=== PATIENT | male | born 1985 | race Caucasian/White ===

== ENCOUNTER 2020-06-18 11:16 | Emergency (ER) | payer OTHER ==
[~2020-06-18] VITALS: Ht 177.8 cm; Wt 75.2 kg
--- NOTE | 2020-06-18 11:27 | PHYS DOC ---
Past History Past Medical History: Other (X2 spontaneous pneumothorax to right side) Smoking: Quit Greater Than 1 Year Alcohol Use: None Drug Use: None Adult General Chief Complaint Chief Complaint: CHEST PAIN HPI HPI Patient is a 35-year-old male who presents for chest pain. 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 Patient reports he thought he pulled a muscle when he started driving approximately 1 hour later and started developing left-sided chest wall pain. Nothing known makes better, inhalation makes worse. Pain is dull constant and 7 out of 10 without any radiation. He has never felt pain like this before. He has history of spontaneous pneumothorax x2 on right side but this feels different. He has no other cardiac history. He has history of smoking tobacco but no other concerning risk factors, is never passed out with physical exertion, no significant family medical history of cardiac disease Review of Systems Review of Systems Fourteen body systems of review of systems have been reviewed. See HPI for pertinent positives and negative responses, other fortune all other systems are negative, non-pertinent or non-contributory Physical Exam Physical Exam Constitutional: Well developed, well nourished, no acute distress, non-toxic appearance. HENT: Normocephalic, atraumatic, bilateral external ears normal, oropharynx moist, no oral exudates, nose normal. Eyes: PERRLA, EOMI, conjunctiva normal, no discharge. Neck: Normal range of motion, no tenderness, supple, no stridor. Cardiovascular: Heart rate regular, sinus rhythm, no murmurs rubs or gallops Lungs & Thorax: Bilateral breath sounds clear to auscultation Abdomen: Bowel sounds normal, soft, no tenderness, no masses, no pulsatile masses. Nonsurgical abdomen, no peritoneal signs Skin: Warm, dry, no erythema, no rash. Back: No tenderness, no CVA tenderness. Extremities: No tenderness, no cyanosis, no clubbing, ROM intact, no edema. Neurologic: Alert and oriented X 3, grossly normal motor & sensory function, no focal deficits noted. Psychologic: Affect normal, judgement normal, mood normal. Current Patient Data Vital Signs Vital Signs Date Time Temp Pulse Resp B/P (MAP) Pulse Ox O2 Delivery O2 Flow Rate FiO2 06/18/20 11:30 97.7 75 20 138/102 (114) 98 Room Air Vital Signs Date Time Temp Pulse Resp B/P (MAP) Pulse Ox O2 Delivery O2 Flow Rate FiO2 06/18/20 11:40 69 20 131/94 (106) 98 Room Air 06/18/20 11:30 97.7 EKG EKG EKG ordered and interpreted by myself at 1138 hrs. as sinus rhythm at 60 bpm, unremarkable intervals, no axis deviation, no acute ischemic findings, no STEMI Radiology/Procedures Radiology/Procedures XR CHEST 1V History: Reason: left sided chest pain / Spl. Instructions: / History: Comparison: None. Findings: No consolidation or pleural effusion. Normal heart size. No pneumothorax. Postoperative changes right upper lobe. Impression: 1. No acute cardiopulmonary process. Electronically signed by: Alvarez Pinedo DO (06/18/2020 12:06 PM) [id number] Heart Score C/O Chest Pain: Yes HEART Score for Chest Pain: HEART Score for Chest Pain Response (Comments) Value History Slighlty/Non-Suspicious 0 ECG Normal 0 Age < 45 0 Risk Factors No Risk Factors 0 Total 0 Risk Factors: Risk Factors: DM, Current or recent (<one month) smoker, HTN, HLP, family history of CAD, obesity. Risk Scores: Risk Factors: DM, Current or recent (<one month) smoker, HTN, HLP, family history of CAD, obesity. Course & Med Decision Making Course & Med Decision Making Hemodynamically stable. HPI concerning for chest pain vs GERD, patient reports eating questionably cooked homemade BBQ pork. PE and ER workup unremarkable. Discussed utility of additional ER workup but patient asymptomatic. Reviewed HEART score but is limited due to lack of trop. Likely GERD vs msk, unlikely anything serious Advised close follow-up with PCP for outpatient follow up Dragon Disclaimer Dragon Disclaimer This electronic medical record was generated, in whole or in part, using a voice recognition dictation system. Ultrasound Ultrasound : Ultrasound: normal Progress Bedside POC US performed by myself. Subxiphoid and parasternal views of heart unremarkable without significant wall motion abnormalities and/or pericardial effusion Departure Departure: Impression: Primary Impression: Chest pain, unspecified Disposition: HOME / SELF CARE / HOMELESS Condition: STABLE Referrals: PCP,UNKNOWN (PCP) Additional Instructions: You were seen for chest pain. Your workup did not show any acute abnormalities today, but does not indicate that you do not have underlying cardiovascular disease. You do need to follow up with your primary doctor and potentially a hatchery worker for further evaluation and treatment. You should return to the ED if you develop worsening chest pain, shortness of breath, fever, abnormal sweating, leg swelling, or any other new or concerning symptoms. RADHA AYALA DO Jun 18, 2020 11:27
[2020-06-18 11:40] VITALS: BP 131/94
--- NOTE | 2020-06-18 11:50 | EKG ---
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
--- NOTE | 2020-06-18 12:09 | RAD ---
XR CHEST 1V History: Reason: left sided chest pain / Spl. Instructions: / History: Comparison: None. Findings: No consolidation or pleural effusion. Normal heart size. No pneumothorax. Postoperative changes right upper lobe. Impression: 1. No acute cardiopulmonary process. Electronically signed by: Alvarez Pinedo DO (06/18/2020 12:06 PM) [id number]
== END 2020-06-18 12:35 | disposition home or self-care (01) ==
LOC: ER 11:16
DX: R07.89 Other chest pain (principal); M54.89 Other dorsalgia; Z87.891 Personal history of nicotine dependence
CPT/HCPCS: 71045; 93005; 99283